=== PATIENT | female | born 1995 | race African-American/Black ===

== ENCOUNTER 2017-09-07 10:00 | Emergency (ER) | payer OTHER ==
[2017-09-07] MEDS ORDERED: ONDANSETRON 4 MG/2 ML VIAL ONE (10:56)
[2017-09-07 11:06] LABS: Bicarbonate 25 mEq/L (21-31); Glucose Level 96 mg/dL (65-120); Lipase 44 U/L (22-51); Potassium 3.8 mEq/L (3.6-5.0); Sodium Level 137 mEq/L (135-145)
[2017-09-07 11:08] LABS: Absolute Monocytes 0.5 K/uL (0.1-1.3); Absolute Neutrophil 3.7 K/uL (1.8-8.0); Basophils % 0.6 % (0-1.3); Eosinophils % 1.9 % (0-4.4); Hematocrit 41.4 % (36.0-45.0); Lymphocytes % 40.3 % (15.3-44.8); MCH 26.2 pg (27.0-35.0); MCV 80.1 fL (80-100); MPV 8.6 fL (7.6-11.3); Monocytes % 7.4 % (3.3-12.3); RBC Red Blood Cell Count 5.17 M/uL (3.86-4.86)
[2017-09-07 11:12] LABS: ALT/SGPT 20 IU/L (10-60); AST/SGOT 22 IU/L (10-42); Albumin 4.2 g/dL (3.2-5.5); Alkaline Phosphatase 94 IU/L (42-121); BUN Blood Urea Nitrogen 9 mg/dL (6-20); Bilirubin Direct 0.1 mg/dL (0-0.2); Bilirubin Total 0.5 mg/dL (0.3-1.2); Protein, Total 7.7 g/dL (6.0-8.3)
[2017-09-07 11:31] LABS: Urine Blood TRACE (NEG); Urine Glucose NEGATIVE (NEG); Urine Protein NEGATIVE (NEG); Urine Specific Gravity 1.015 (1.005-1.030)
[2017-09-07 11:36] LABS: Urine Bacteria <20 /HPF (<20); Urine Culture Reflex Order NOT NEEDED; Urine Mucus 1+ /HPF (NONE SEEN); Urine RBC <5 /HPF (NONE SEEN)
--- NOTE | 2017-09-07 12:54 | RAD REPORT ---
EXAM DESCRIPTION: CT - Abdomen Pelvis W Contrast - 09/07/2017 12:36 pm CLINICAL HISTORY: Abdominal pain. Umbilical pain for 6 weeks COMPARISON: None. TECHNIQUE: Computed axial tomography of the abdomen and pelvis was obtained. 100 cc Isovue-300 is ad ministered intravenously. Oral contrast was given. Coronal reconstruction was performed All CT scans are performed using dose optimization technique as appropriate and may include automated exposure control or mA/KV adjustment according to patient size. FINDINGS: The liver, spleen, pancreas, adrenals and kidneys appear unremarkable. The appendix is normal caliber. It contains an appendicolith. Stranding within the adjacent fat is no t seen. There is no evidence of diverticulitis . An adnexal mass is not seen. A tiny umbilical hernia is present. Increased density is present within the adjacent fat. IMPRESSION: Tiny umbilical hernia. Increased density within the adjacent fat may indicate inflammati on and should be correlated clinically. Appendicolith without evidence of acute appendicitis
--- NOTE | 2017-09-07 13:25 | ER ---
Nurse's Notes [facility] Name: Rodolfo Faulkner Age: 22 yrs Sex: Female : 1995 Arrival Date: 09/07/2017 Time: 10:03 Bed 13 Private MD: Unknown, Unknown Diagnosis: Umbilical hernia without obstruction or gangrene Presentation: 09/07 10:15 Presenting complaint: Patient states: Pain at umbilicus for 1.5 months. Worse today aj when drinking water. Transition of care: patient was not received from another setting of care. Onset of symptoms was June 2017. Risk Assessment: Do you want to hurt yourself or someone else? Patient reports no desire to harm self or others. Care prior to arrival: None. 10:15 Method Of Arrival: Ambulatory aj 10:15 Acuity: ANAT 3 aj 10:45 Initial Sepsis Screen: Does the patient meet any 2 criteria? No. Patient's initial aa5 sepsis screen is negative. Does the patient have a suspected source of infection? No. Patient's initial sepsis screen is negative. Triage Assessment: 10:16 General: Appears in no apparent distress. comfortable, Behavior is calm, cooperative, aj appropriate for age. Pain: Complains of pain in umbilical area. Neuro: Level of Consciousness is awake, alert, obeys commands, Oriented to person, place, time, situation, Appropriate for age. Respiratory: Airway is patent Respiratory effort is even, unlabored, Respiratory pattern is regular, symmetrical. GI: Abdomen is non-distended, obese. Derm: Skin is intact, is healthy with good turgor, Skin is pink, warm \T\ dry. normal. 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 - Social history:: Smoking status: Patient/guardian denies using tobacco. - Ebola Screening: : Patient negative for fever greater than or equal to 101.5 degrees Fahrenheit, and additional compatible Ebola Virus Disease symptoms Patient denies exposure to infectious person Patient denies travel to an Ebola-affected area in the 21 days before illness onset No symptoms or risks identified at this time. Screenin:49 Abuse screen: Denies threats or abuse. Nutritional screening: No deficits noted. aa5 Tuberculosis screening: No symptoms or risk factors identified. Fall Risk None identified. Assessment: 10:25 General: Appears comfortable, Behavior is calm, cooperative. Pain: Complains of pain in aa5 umbilical area Pain does not radiate. Pain currently is 6 out of 10 on a pain scale. Quality of pain is described as pressure, sharp, Pain began 1 1/2 month Is intermittent, lasting a few seconds. Alleviated by nothing. Aggravated by none. Neuro: Level of Consciousness is awake, alert, obeys commands, Oriented to person, place, time, situation. Cardiovascular: Heart tones S1 S2 present Rhythm is regular. Respiratory: Airway is patent Respiratory effort is even, unlabored, Respiratory pattern is regular, symmetrical. GI: Abdomen is round non-distended, Bowel sounds present X 4 quads. Abd is soft and non tender X 4 quads. Patient currently denies diarrhea, nausea, vomiting. : No signs and/or symptoms were reported regarding the genitourinary system. EENT: No signs and/or symptoms were reported regarding the EENT system. Derm: Skin is dry, Skin is normal, Skin temperature is warm. Musculoskeletal: Range of motion: intact in all extremities. 10:45 Reassessment: Pt finished drinking CT oral contrast, CT notified . aa5 11:05 Reassessment: Patient and/or family updated on plan of care and expected duration. Pain aa5 level reassessed. Pt c/o nausea, MEDICAL LIBRARIAN notified . 11:32 Reassessment: Patient and/or family updated on plan of care and expected duration. Pain aa5 level reassessed. Pt reports nausea has improved . Pain: Pain currently is 5 out of 10 on a pain scale. Neuro: Level of Consciousness is awake, alert, obeys commands, Oriented to person, place, time, situation. Respiratory: Airway is patent Respiratory effort is even, unlabored, Respiratory pattern is regular, symmetrical. Derm: Skin is dry, Skin is normal, Skin temperature is warm. 11:32 Reassessment: Awaiting CT scan. aa5 12:20 Neuro: Level of Consciousness is awake, alert, obeys commands, Oriented to person, aa5 place, time, situation. Respiratory: Airway is patent Respiratory effort is even, unlabored, Respiratory pattern is regular, symmetrical. Derm: Skin is dry, Skin is normal, Skin temperature is warm. 12:20 Reassessment: Patient and/or family updated on plan of care and expected duration. Pain aa5 level reassessed. Awaiting CT scan. Pt sitting up in bed, smiling and speaking to family member . Pain: Pain currently is 5 out of 10 on a pain scale. 12:42 Reassessment: Patient and/or family updated on plan of care and expected duration. Pain aa5 level reassessed. Pt back from CT scan . 14:15 Neuro: Level of Consciousness is awake, alert, obeys commands, Oriented to person, aa5 place, time, situation. Respiratory: Airway is patent Respiratory effort is even, unlabored, Respiratory pattern is regular, symmetrical. Derm: Skin is dry, Skin is normal, Skin temperature is warm. Vital Signs: 10:16 BP 115 / 64; Pulse 71; Resp 16; Temp 97.9; Pulse Ox 100% on R/A; Weight 104.33 kg; aj Height 5 ft. 7 in. (170.18 cm); 11:20 BP 115 / 83; Pulse 50; Resp 16 S; Pulse Ox 100% on R/A; Pain 5/10; aa5 13:30 BP 116 / 76; Pulse 52; Resp 16 S; Pulse Ox 98% on R/A; Pain 5/10; aa5 10:16 Body Mass Index 36.02 (104.33 kg, 170.18 cm) aj ED Course: 10:03 Patient arrived in ED. mr 10:03 Unknown, Unknown is Private Physician. mr 10:16 Triage completed. aj 10:16 Arm band placed on left wrist. Patient placed in an exam room. aj 10:22 Lexy Zhao, RN is Primary Nurse. aa5 10:23 Ale Ashton FNP-C is PHCP. snw 10:23 Jacob Gutierrez MD is Attending Physician. snw 10:35 Patient has correct armband on for positive identification. Placed in gown. Bed in low aa5 position. Call light in reach. Side rails up X2. 10:45 Initial lab(s) drawn, by me, sent to lab. Inserted saline lock: 20 gauge in right aa5 antecubital area, using aseptic technique. Blood collected. 11:04 No provider procedures requiring assistance completed. aa5 12:31 CT completed. Patient tolerated procedure well. Patient moved to CT via wheelchair. mw3 Patient moved back from CT. 12:36 CT Abd/Pelvis - W/Contrast In Process Unspecified. EDMS 14:15 IV discontinued, intact, bleeding controlled, No redness/swelling at site. Pressure aa5 dressing applied. Administered Medications: 11:05 Drug: Zofran 4 mg Route: IVP; Site: right antecubital; aa5 11:15 Follow up: Response: No adverse reaction aa5 13:50 Drug: TORadol 30 mg Route: IVP; Site: right antecubital; aa5 13:57 Follow up: Response: No adverse reaction aa5 Outcome: 13:25 Discharge ordered by MD. snw 14:15 Discharged to home ambulatory, with family. aa5 14:15 Condition: good 14:15 Discharge instructions given to patient, Instructed on discharge instructions, follow up and referral plans. medication usage, Demonstrated understanding of instructions, follow-up care, medications, Prescriptions given X 1. 14:17 Patient left the ED. aa5 Signatures: Dispatcher [employer] EDSharon Bullard, RN RN Ale Jesus, LUMBER STRAIGHTENER-C LUMBER STRAIGHTENER-Csnw Mary Cortez Audri, RN RN aa5 Sharyn Appiah mw3 Corrections: (The following items were deleted from the chart) 12:44 10:25 Pain: Complains of pain in umbilical area Pain does not radiate. Pain Quality of aa5 pain is described as pressure, sharp, Pain began 1 1/2 month Is intermittent, lasting a few seconds. Alleviated by nothing. Aggravated by none aa5
--- NOTE | 2017-09-07 13:25 | EDPHYS ---
Physician Documentation [facility] Name: Rodolfo Faulkner Age: 22 yrs Sex: Female : 1995 Arrival Date: 09/07/2017 Time: 10:03 Bed 13 Private MD: Unknown, Unknown ED Physician Jacob Gutierrez HPI: 09/07 10:58 This 22 yrs old Black Female presents to ER via Ambulatory with complaints of Abdominal snw Pain, Nausea. 10:58 The patient presents with abdominal pain in the periumbilical area. Onset: The snw symptoms/episode began/occurred gradually, 1.5 month(s) ago, and became persistent. The symptoms do not radiate. Associated signs and symptoms: Pertinent positives: nausea, Pertinent negatives: diarrhea, fever, vomiting. The symptoms are described as intermittent, sharp, shooting. Severity of pain: At its worst the pain was moderate. The patient has experienced similar episodes in the past, x 1.5 months. The patient has not recently seen a physician. 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 - Social history:: Smoking status: Patient/guardian denies using tobacco. - Ebola Screening: : Patient negative for fever greater than or equal to 101.5 degrees Fahrenheit, and additional compatible Ebola Virus Disease symptoms Patient denies exposure to infectious person Patient denies travel to an Ebola-affected area in the 21 days before illness onset No symptoms or risks identified at this time. ROS: 10:58 Constitutional: Negative for fever, chills, and weight loss, Eyes: Negative for injury, snw pain, redness, and discharge, ENT: Negative for injury, pain, and discharge, Neck: Negative for injury, pain, and swelling, Cardiovascular: Negative for chest pain, palpitations, and edema, Respiratory: Negative for shortness of breath, cough, wheezing, and pleuritic chest pain, Back: Negative for injury and pain, : Negative for injury, bleeding, discharge, and swelling, MS/Extremity: Negative for injury and deformity, Skin: Negative for injury, rash, and discoloration, Neuro: Negative for headache, weakness, numbness, tingling, and seizure. 10:58 Abdomen/GI: Positive for abdominal pain, Negative for nausea, vomiting, and diarrhea. Exam: 10:57 Constitutional: This is a well developed, well nourished patient who is awake, alert, snw and in no acute distress. Head/Face: Normocephalic, atraumatic. Eyes: Pupils equal round and reactive to light, extra-ocular motions intact. Lids and lashes normal. Conjunctiva and sclera are non-icteric and not injected. Cornea within normal limits. Periorbital areas with no swelling, redness, or edema. ENT: Nares patent. No nasal discharge, no septal abnormalities noted. Tympanic membranes are normal and external auditory canals are clear. Oropharynx with no redness, swelling, or masses, exudates, or evidence of obstruction, uvula midline. Mucous membranes moist. Neck: Trachea midline, no thyromegaly or masses palpated, and no cervical lymphadenopathy. Supple, full range of motion without nuchal rigidity, or vertebral point tenderness. No Meningismus. Chest/axilla: Normal chest wall appearance and motion. Nontender with no deformity. No lesions are appreciated. Cardiovascular: Regular rate and rhythm with a normal S1 and S2. No gallops, murmurs, or rubs. Normal PMI, no JVD. No pulse deficits. Respiratory: Lungs have equal breath sounds bilaterally, clear to auscultation and percussion. No rales, rhonchi or wheezes noted. No increased work of breathing, no retractions or nasal flaring. Back: No spinal tenderness. No costovertebral tenderness. Full range of motion. Skin: Warm, dry with normal turgor. Normal color with no rashes, no lesions, and no evidence of cellulitis. MS/ Extremity: Pulses equal, no cyanosis. Neurovascular intact. Full, normal range of motion. Neuro: Awake and alert, GCS 15, oriented to person, place, time, and situation. Cranial nerves II-XII grossly intact. Motor strength 5/5 in all extremities. Sensory grossly intact. Cerebellar exam normal. Normal gait. 10:57 Abdomen/GI: Inspection: abdomen appears normal, Bowel sounds: active, Palpation: mild abdominal tenderness, in the umbilical area. Vital Signs: 10:16 BP 115 / 64; Pulse 71; Resp 16; Temp 97.9; Pulse Ox 100% on R/A; Weight 104.33 kg; aj Height 5 ft. 7 in. (170.18 cm); 11:20 BP 115 / 83; Pulse 50; Resp 16 S; Pulse Ox 100% on R/A; Pain 5/10; aa5 13:30 BP 116 / 76; Pulse 52; Resp 16 S; Pulse Ox 98% on R/A; Pain 5/10; aa5 10:16 Body Mass Index 36.02 (104.33 kg, 170.18 cm) aj MDM: 10:23 Patient medically screened. snw 13:42 Data reviewed: vital signs, nurses notes. Data interpreted: Pulse oximetry: on room air snw is 100 %. Interpretation: normal. Counseling: I had a detailed discussion with the patient and/or guardian regarding: the historical points, exam findings, and any diagnostic results supporting the discharge/admit diagnosis, the presence of at least one elevated blood pressure reading (>120/80) during this emergency department visit, lab results, radiology results, the need for outpatient follow up, to return to the emergency department if symptoms worsen or persist or if there are any questions or concerns that arise at home. Special discussion: Based on the patient's Hx, exam, and Dx evaluation, there is no indication for emergent surgery or inpatient Tx. It is understood by the patient/guardian that if the Sx's persist or worsen they need to return immediately for re-evaluation. I have referred the patient to see his PCP for further evaluation of high blood pressure. Based on the history and exam findings, there is no indication for further emergent testing or inpatient evaluation. I discussed with the patient/guardian the need to see the general surgeon for further evaluation of the symptoms. I discussed with the patient/guardian the need to see the primary care provider for further evaluation of the symptoms. 09/07 10:32 Order name: Basic Metabolic Panel; Complete Time: : snw 09/07 10:32 Order name: CBC with Diff; Complete Time: : snw 09/07 10:32 Order name: Hepatic Function; Complete Time: 11: snw 09/07 10:32 Order name: Lipase; Complete Time: : snw 09/07 10:32 Order name: Urine Microscopic Only; Complete Time: 11:44 snw 09/07 11:20 Order name: Urine Dipstick--Ancillary (enter results); Complete Time: 11:44 bd 09/07 10:32 Order name: Urine Test (obtain specimen); Complete Time: 11:31 snw 09/07 10:32 Order name: IV Saline Lock; Complete Time: 10:48 snw 09/07 10:32 Order name: Labs collected and sent; Complete Time: 10:48 snw 09/07 10:32 Order name: Urine Dipstick-Ancillary (obtain specimen); Complete Time: 11:31 snw 09/07 10:32 Order name: CT Abd/Pelvis - W/Contrast; Complete Time: 13:18 snw 09/07 11:20 Order name: Urine --Ancillary (enter results); Complete Time: 11:44 bd Administered Medications: 11:05 Drug: Zofran 4 mg Route: IVP; Site: right antecubital; aa5 11:15 Follow up: Response: No adverse reaction aa5 13:50 Drug: TORadol 30 mg Route: IVP; Site: right antecubital; aa5 13:57 Follow up: Response: No adverse reaction aa5 Disposition: 16:59 Co-signature as Attending Physician, Jacob Gutierrez MD. rn Disposition: 09/07/17 13:25 Discharged to Home. Impression: Umbilical hernia without obstruction or gangrene. - Condition is Stable. - Discharge Instructions: Hernia, Abdominal Pain, Women. - Prescriptions for Diclofenac Sodium 75 mg Oral Tablet Sustained Release - take 1 tablet by ORAL route 2 times per day; 30 tablet. - Work release form, Medication Reconciliation Form, Thank You Letter, Antibiotic Education, Prescription Opioid Use form. - Follow up: Private Physician; When: 2 - 3 days; Reason: Recheck today's complaints, Continuance of care, Re-evaluation by your physician. Follow up: Emergency Department; When: As needed; Reason: Worsening of condition. Signatures: Dispatcher [employer] Sharon Braxton RN RN aj Therrien, Shelly, PROGRAM MANAGEMENT SPECIALIST-C PROGRAM MANAGEMENT SPECIALIST-Csnw Jacob Gutierrez MD MD rn Calderon, Audri, RN RN aa5 Corrections: (The following items were deleted from the chart) 14:17 13:25 09/07/2017 13:25 Discharged to Home. Impression: Umbilical hernia without aa5 obstruction or gangrene. Condition is Stable. Forms are Medication Reconciliation Form, Thank You Letter, Antibiotic Education, Prescription Opioid Use. Follow up: Private Physician; When: 2 - 3 days; Reason: Recheck today's complaints, Continuance of care, Re-evaluation by your physician. Follow up: Emergency Department; When: As needed; Reason: Worsening of condition. snw
[2017-09-07] MEDS ORDERED: KETOROLAC 30 MG/ML INJ ONE (13:52)
== END 2017-09-07 14:17 | disposition home or self-care (01) ==
LOC: ER 10:00
DX: K42.9 Umbilical hernia without obstruction or gangrene (principal)
CPT/HCPCS: 36415; 74177; 80048; 80076; 81003; 81015; 81025; 83690; 85025; 96374; 96375; 99284; J2405; Q9967

== ENCOUNTER 2017-11-15 07:02 | Day surgery (SDC) | payer OTHER ==
[2017-11-13 15:07] LABS: Absolute Lymphocytes (CBC) 2.7 K/uL (0.7-4.9); Absolute Monocytes 0.4 K/uL (0.1-1.3); Absolute Neutrophil 3.1 K/uL (1.8-8.0); Basophils % 0.5 % (0-1.3); Eosinophils % 2.4 % (0-4.4); Hematocrit 40.8 % (36.0-45.0); MCH 26.8 pg (27.0-35.0); MCV 80.7 fL (80-100); MPV 8.7 fL (7.6-11.3); Monocytes % 6.8 % (3.3-12.3); RBC Red Blood Cell Count 5.06 M/uL (3.86-4.86)
[2017-11-13 15:13] LABS: Potassium 4.2 mmol/L (3.5-5.1)
--- NOTE | 2017-11-13 15:34 | RAD REPORT ---
EXAM DESCRIPTION: RAD - Chest Pa And Lat (2 Views) - 11/13/2017 2:54 pm CLINICAL HISTORY: preop Chest pain. COMPARISON: No comparisons FINDINGS: The lungs are clear. The heart is normal in size. No displaced fractures. IMPRESSION: No acute or concerning finding suspected.
[2017-11-15] MEDS ORDERED: BUPIVACAINE 0.5% PF 10 ML VIAL ONE (07:11)
[2017-11-15] MEDS ORDERED: Ringers Lactate 1,000 ML IV ONE (07:21)
[2017-11-15] MEDS ORDERED: PROPOFOL 200 MG/20 ML VIAL IV ONE (07:34)
[2017-11-15] MEDS ORDERED: GLYCOPYRROLATE 0.2 MG/ML SYR ONE ×4 (07:35→08:47)
[2017-11-15] MEDS ORDERED: FENTANYL CITR 250 MCG/5 ML ONE (07:36)
[2017-11-15] MEDS ORDERED: LIDOCAINE 1% MPF 5 ML VIAL ONE (07:36)
[2017-11-15] MEDS ORDERED: NEOSTIGMINE 1 MG/ML -5 ML SYRINGE ONE (07:37)
[2017-11-15] MEDS ORDERED: ONDANSETRON HCL 40 MG/20 ML VIAL ONE (07:37)
[2017-11-15] MEDS ORDERED: ROCURONIUM 50 MG/5 ML VIAL IV ONE ×2 (07:37)
[2017-11-15] MEDS ORDERED: MIDAZOLAM HCL 2 MG/2 ML INJ ONE (07:38)
[2017-11-15 07:39] LABS: Specific Gravity >= 1.030 (1.005-1.030)
[2017-11-15] MEDS ORDERED: CEFAZOLIN/SWI 1gm 1 GM/10 ML SYR ONE (07:43)
--- NOTE | 2017-11-15 08:27 | P.BOP ---
Preoperative diagnosis: incarcerated tender umbilical hernia Postoperative diagnosis: same Primary procedure: Open repair of incarcerated tender umbilical hernia Family Service Aide: KUMAR IVEY Estimated blood loss: <10cc Specimen: hernia sac Findings: incarcerated umbilical hernia with omentum Anesthesia: General Complications: None Transferred to: Recovery Room Condition: Good
[2017-11-15] MEDS ORDERED: ONDANSETRON 4 MG/2 ML VIAL ONE (10:27)
[2017-11-15] MEDS ORDERED: CODEINE 30MG/APAP 300MG TAB ONE (10:58)
--- NOTE | 2017-11-15 19:33 | OP ---
Date of Procedure: 11/15/2017 Surgeon: Peter Tomas MD Utility Accounts Director: Ric Garcia. Preoperative Diagnosis: Incarcerated tender umbilical hernia. Postoperative Diagnosis: Incarcerated tender umbilical hernia. Procedure: Open repair of incarcerated tender umbilical hernia. Finding: Incarcerated omentum. Anesthesia: General plus local. Indications: This is a case of a 22-year-old patient with incarcerated tender umbilical hernia. The patient wants that repair. The benefits, alternatives, and risks were fully explained which include , but not limited to infection, bleeding, damage to adjacent structures, anesthesia complication, rec urrence, [place], and even . She also understands this may not relieve any symptoms. She might need more than one surgical intervention. She also understands importance of no heavy lifting and losing weight. She signed a consent. Description Of Procedure: The patient was brought to the operating room, placed in supine position. Anesthesia was done without complication. Abdominal area was prepped and draped in a sterile fashio n. Marcaine 0.5% injected for local anesthetic, followed by sharp incision of the skin in the infrau mbilical region. Incision was carried down to fascia. We noticed umbilical sac that we dissected fr ee from the umbilical skin. Opened the hernia sac and noticed incarcerated omentum. After releasing some adhesions of omentum to the hernia sac. We were able to reduce the omentum intact after fully inspected with no bleeding. The hernia sac was removed. The fascial edges were cleaned and then we proceeded to close the area with #1 Prolene [id number] fashion multiple times. Subcutaneous tis ric was closed with 3-0 chromic and skin in a subcuticular fashion, a 3-0 chromic and Steri-Strips on top. Sponge count and instrument counts were correct. The patient tolerated the procedure well. T he patient was sent to recovery in stable condition. DISCHARGE SUMMARY Diagnosis: Incarcerated tender umbilical hernia. Procedure: Open repair of incarcerated tender umbilical hernia. Disposition: Home. Activity: As tolerated. No heavy lifting. Followup: Follow up in my office in 1 week. Call for appointment on [phone]. Keep the area dry fo r 48 hours, then may shower. Keep Steri-Strips intact. Medications: Include Tylenol No. 3 q.4 hours p.r.n. pain and Bactrim DS p.o. b.i.d. HM/MODL Voice ID: [id number] Report ID: [id number]
== END 2017-11-15 12:05 | disposition home or self-care (01) ==
LOC: OR 07:02
PROVIDERS: ATTEND Surgery
PROC: 0WQF0ZZ Repair Abdominal Wall, Open Approach (ICD-10-PCS; principal; 2017-11-15 07:30)
DX: K42.0 Umbilical hernia with obstruction, without gangrene (principal); F17.210 Nicotine dependence, cigarettes, uncomplicated
CPT/HCPCS: 36415; 71046; 80048; 81025; 85025; 88302; J0690; J2250; J2405; J2710

== ENCOUNTER 2019-06-11 10:43 | Emergency (ER) | payer OTHER, SELFPAY ==
[2019-06-11] MEDS ORDERED: LIDOCAINE VISCOUS 2% SOLN 15 ML UDC ONE (11:47)
[2019-06-11] MEDS ORDERED: MAGNE/ALUM HYDROXD 30 ML UCUP ONE (11:47)
--- NOTE | 2019-06-11 12:20 | ER ---
Nurse's Notes [facility] Name: Rodolfo Faulkner Age: 24 yrs Sex: Female : 1995 Arrival Date: 06/11/2019 Time: 10:45 Bed 11 Private MD: Diagnosis: Streptococcal pharyngitis Presentation: 06/10 11:28 Chief complaint: Patient states: R ear pain pain and sore throat that began a week ago. ss Denies fever. Coronavirus screen: The patient has NOT traveled to a country currently being monitored by the [facility] within the last 14 days. Proceed with normal triage procedures. Ebola Screen: Patient denies exposure to infectious person. Patient denies travel to an Ebola-affected area in the 21 days before illness onset. Initial Sepsis Screen: Does the patient meet any 2 criteria? Does the patient have a suspected source of infection? No. Patient's initial sepsis screen is negative. Risk Assessment: Do you want to hurt yourself or someone else? Patient reports no desire to harm self or others. 11:28 Method Of Arrival: Ambulatory ss 11:28 Acuity: ANAT 4 ss Historical: - Allergies: 11:31 No Known Allergies; ss - Home Meds: 11:31 None [Active]; ss - PMHx: 11:31 None; ss - PSHx: 11:31 None; ss - Immunization history:: Adult Immunizations up to date. - Social history:: Smoking status: Patient denies any tobacco usage or history of. Screenin:31 Abuse screen: Denies threats or abuse. Denies injuries from another. Nutritional ss screening: No deficits noted. Tuberculosis screening: Never had TB. Fall Risk None identified. Assessment: 11:31 General: Appears in no apparent distress. comfortable, Behavior is calm, cooperative. ss Pain: Complains of pain in throat, R ear Pain currently is 10 out of 10 on a pain scale. Quality of pain is described as sore. Neuro: Level of Consciousness is awake, alert, obeys commands. Cardiovascular: Capillary refill < 3 seconds is brisk in bilateral. Respiratory: Airway is patent Respiratory effort is even, unlabored, Respiratory pattern is regular, symmetrical. GI: Patient currently denies diarrhea, nausea, vomiting. EENT: Throat is reddened has enlarged tonsils. Derm: Skin is intact, is healthy with good turgor, Skin is dry, Skin is pink, warm \T\ dry. normal. Musculoskeletal: Circulation, motion, and sensation intact. Range of motion: intact in all extremities, Swelling absent. Vital Signs: 11:28 BP 122 / 88; Pulse 107; Resp 16; Temp 99.2(TE); Pulse Ox 99% on R/A; Weight 104.33 kg; ss Height 5 ft. 7 in. (170.18 cm); Pain 01/03; 11:28 Body Mass Index 36.02 (104.33 kg, 170.18 cm) ED Course: 10:45 Patient arrived in ED. rg4 11:01 Chanel Billy FNP-C is [facility]. kb 11:01 Jacob Gutierrez MD is Attending Physician. kb 11:28 Johana Morin, PRABHJOT is Primary Nurse. ss 11:30 Triage completed. ss 11:31 Arm band placed on right wrist. ss 11:31 Patient has correct armband on for positive identification. Bed in low position. Call ss light in reach. 13:25 No provider procedures requiring assistance completed. Patient did not have IV access ss during this emergency room visit. Administered Medications: 11:52 Drug: GI Cocktail without - (Maalox Suspension 30 ml, Lidocaine Liquid 2 % 15 ss ml) Route: PO; 13:19 Follow up: Response: No adverse reaction ss 13:19 Drug: Bicillin L-A 1.2 million units Route: IM; Site: right gluteus; ss 13:42 Follow up: Response: No adverse reaction ss Outcome: 12:18 Discharge ordered by . kb 13:25 Condition: good ss 13:25 Instructed on discharge instructions, follow up and referral plans. medication usage, Demonstrated understanding of instructions, follow-up care, medications. 13:42 Discharged to home ambulatory. ss 13:43 Patient left the ED. ss Signatures: Chanel Billy FNP-C FNP-Johana Elizabeth, PRABHJOT RN Rosalia Cortez rg4
--- NOTE | 2019-06-11 12:21 | EDPHYS ---
Physician Documentation [facility] Name: Rodolfo Faulkner Age: 24 yrs Sex: Female : 1995 Arrival Date: 06/11/2019 Time: 10:45 Bed 11 Private MD: ED Physician Jacob Gutierrez HPI: 06/10 14:14 This 24 yrs old Black Female presents to ER via Ambulatory with complaints of Ear Pain, kb Sore Throat. 14:14 The patient presents with sore throat. The patient describes throat pain as constant. kb Onset: The symptoms/episode began/occurred 1 week(s) ago. Severity of symptoms: At their worst the symptoms were moderate, in the emergency department the symptoms are unchanged. Modifying factors: The symptoms are alleviated by nothing, the symptoms are aggravated by swallowing, Patient's oral intake status: good Denies contact with similarly ill indivduals. Associated signs and symptoms: Pertinent positives: earache, Sore throat. The patient has not experienced similar symptoms in the past. The patient has not recently seen a physician. Historical: - Allergies: 11:31 No Known Allergies; ss - Home Meds: 11:31 None [Active]; ss - PMHx: 11:31 None; ss - PSHx: 11:31 None; ss - Immunization history:: Adult Immunizations up to date. - Social history:: Smoking status: Patient denies any tobacco usage or history of. ROS: 14:16 Constitutional: Negative for fever, chills, and weight loss, Neck: Negative for injury, kb pain, and swelling, Cardiovascular: Negative for chest pain, palpitations, and edema, Respiratory: Negative for shortness of breath, cough, wheezing, and pleuritic chest pain, Abdomen/GI: Negative for abdominal pain, nausea, vomiting, diarrhea, and constipation, Back: Negative for injury and pain, : Negative for injury, bleeding, discharge, and swelling, MS/Extremity: Negative for injury and deformity, Skin: Negative for injury, rash, and discoloration, Neuro: Negative for headache, weakness, numbness, tingling, and seizure. 14:16 ENT: Positive for ear pain, sore throat. Exam: 14:16 Constitutional: This is a well developed, well nourished patient who is awake, alert, kb and in no acute distress. Head/Face: Normocephalic, atraumatic. Neck: Trachea midline, no thyromegaly or masses palpated, and no cervical lymphadenopathy. Supple, full range of motion without nuchal rigidity, or vertebral point tenderness. No Meningismus. Chest/axilla: Normal chest wall appearance and motion. Nontender with no deformity. No lesions are appreciated. Cardiovascular: Regular rate and rhythm with a normal S1 and S2. No gallops, murmurs, or rubs. Normal PMI, no JVD. No pulse deficits. Respiratory: Lungs have equal breath sounds bilaterally, clear to auscultation and percussion. No rales, rhonchi or wheezes noted. No increased work of breathing, no retractions or nasal flaring. Abdomen/GI: Soft, non-tender, with normal bowel sounds. No distension or tympany. No guarding or rebound. No evidence of tenderness throughout. Skin: Warm, dry with normal turgor. Normal color with no rashes, no lesions, and no evidence of cellulitis. MS/ Extremity: Pulses equal, no cyanosis. Neurovascular intact. Full, normal range of motion. Neuro: Awake and alert, GCS 15, oriented to person, place, time, and situation. Cranial nerves II-XII grossly intact. Motor strength 5/5 in all extremities. Sensory grossly intact. Cerebellar exam normal. Normal gait. 14:16 ENT: External ear(s): are unremarkable, Ear canal(s): are normal, TM's: are normal, Nose: is normal, Mouth: is normal, Posterior pharynx: Airway: normal, no evidence of obstruction, Tonsils: bilaterally enlarged, with erythema, Uvula: normal, midline, swelling, that is moderate, erythema, that is moderate. Vital Signs: 11:28 BP 122 / 88; Pulse 107; Resp 16; Temp 99.2(TE); Pulse Ox 99% on R/A; Weight 104.33 kg; ss Height 5 ft. 7 in. (170.18 cm); Pain 10/10; 11:28 Body Mass Index 36.02 (104.33 kg, 170.18 cm) ss MDM: 11:04 Patient medically screened. kb 12:12 Data reviewed: vital signs, nurses notes. Data reviewed: lab test result(s). Data kb interpreted: Pulse oximetry: on room air is 99 %. Interpretation: normal. Counseling: I had a detailed discussion with the patient and/or guardian regarding: the historical points, exam findings, and any diagnostic results supporting the discharge/admit diagnosis, lab results, the need for outpatient follow up, a family practitioner, to return to the emergency department if symptoms worsen or persist or if there are any questions or concerns that arise at home. 06/10 11:18 Order name: Strep; Complete Time: 12:09 kb Administered Medications: 11:52 Drug: GI Cocktail without - (Maalox Suspension 30 ml, Lidocaine Liquid 2 % 15 ss ml) Route: PO; 13:19 Follow up: Response: No adverse reaction ss 13:19 Drug: Bicillin L-A 1.2 million units Route: IM; Site: right gluteus; ss 13:42 Follow up: Response: No adverse reaction ss Disposition: 15:26 Co-signature as Attending Physician, Jacob Gutierrez MD. rn Disposition: 06/11/19 12:18 Discharged to Home. Impression: Streptococcal pharyngitis. - Condition is Stable. - Discharge Instructions: Strep Throat, [id number]. - Medication Reconciliation Form, Thank You Letter, Antibiotic Education, Prescription Opioid Use form. - Follow up: Emergency Department; When: As needed; Reason: Worsening of condition. Follow up: Private Physician; When: 2 - 3 days; Reason: Recheck today's complaints, Continuance of care, Re-evaluation by your physician. Signatures: Dispatcher [employer] EDMN Wenceslao Chanel, OFFICE MACHINERY OR EQUIPMENT INSTALLER-C OFFICE MACHINERY OR EQUIPMENT INSTALLER-Ckb Jacob Gutierrez MD MD rn [facility] CenterJohana sampson RN RN ss Corrections: (The following items were deleted from the chart) 13:43 12:18 06/11/2019 12:18 Discharged to Home. Impression: Streptococcal pharyngitis. ss Condition is Stable. Forms are Medication Reconciliation Form, Thank You Letter, Antibiotic Education, Prescription Opioid Use. Follow up: Emergency Department; When: As needed; Reason: Worsening of condition. Follow up: Private Physician; When: 2 - 3 days; Reason: Recheck today's complaints, Continuance of care, Re-evaluation by your physician. kb
[2019-06-11] MEDS ORDERED: PEN G BENZ LA 1.2MU/2ML SYRINGE IM ONE (13:19)
[2019-06-11 13:57] VITALS: BP 122/88; TEMP 99.2; O2SAT 99
== END 2019-06-11 13:43 | disposition home or self-care (01) ==
LOC: ER 10:43
DX: J02.0 Streptococcal pharyngitis (principal)
CPT/HCPCS: 87081; 96372; 99283; J0561